=== PATIENT | female | born 1975 | race Asian ===

== ENCOUNTER 2020-03-05 13:40 | Emergency (ER) | payer OTHER ==
[~2020-03-05] VITALS: Ht 149.9 cm; Wt 71.7 kg
--- NOTE | 2020-03-05 14:00 | NUR ---
PT BIB SELF C/O PRODUCTIVE COUGH WORST TODAY. GOT POSITIVE COVID19 TEST TODAY. VS CHECKED. STABLE. AWAITING MD ANDERSON.
[2020-03-05 16:37] VITALS: BP 127/78
--- NOTE | 2020-03-05 16:37 | NUR ---
Patient discharged to home in stable condition. Written and verbal after care instructions given. Patient verbalizes understanding of instruction.
== END 2020-03-05 16:38 | disposition home or self-care (01) ==
LOC: ER 13:44
DX: U07.1 COVID-19 (principal); R05 Cough; Z88.6 Allergy status to analgesic agent
CPT/HCPCS: 71045-TC